=== PATIENT | female | born 1950 | race Two or more races ===

== ENCOUNTER 2022-06-01 11:30 | Emergency (ER) | payer OTHER ==
[~2022-06-01] VITALS: Ht 162.6 cm; Wt 68.9 kg
[2022-06-01] MEDS ORDERED: LIPITOR20 MG (11:56)
[2022-06-01] MEDS ORDERED: ZESTRIL2.5 MG (11:56)
[2022-06-01] MEDS ORDERED: PLAVIX75 MG (11:56)
[2022-06-01] MEDS ORDERED: ZALTRAP (11:56)
[2022-06-01] MEDS ORDERED: LEVOTHYROXINE25 MCG (11:56)
[2022-06-01] MEDS ORDERED: CHILDREN'S ASPI81 MG (11:57)
[2022-06-01] MEDS ORDERED: CLONAZEPAM0.5 M1 (11:57)
== END 2022-06-01 15:05 | disposition home or self-care (01) ==
LOC: ER 11:30
DX: M79.605 Pain in left leg (principal); Z91.013 Allergy to seafood; J44.9 Chronic obstructive pulmonary disease, unspecified; E03.9 Hypothyroidism, unspecified; I11.9 Hypertensive heart disease without heart failure; Z95.5 Presence of coronary angioplasty implant and graft